=== PATIENT | male | born 1975 | race Caucasian/White ===

== ENCOUNTER 2016-06-05 18:35 | Emergency (ER) | payer BC, OTHER ==
[2016-06-05] MEDS ORDERED: SODIUM CHLORIDE 0.9% 1,000 ML ONE (19:47)
[2016-06-05 20:03] LABS: ABSOLUTE NEUTROPHIL COUNT 4.8 K/mm3 (1.8-7.7); BASO # 0.1 K/mm3 (0.0-0.2); BASO % 1.1 % (0.2-1.0); EOS # 0.4 (0.0-0.5); EOS % 3.7 % (0.9-2.9); HEMATOCRIT 49.4 % (32.0-52.0); HEMOGLOBIN 16.3 gm/l (14.0-18.0); IMM NEUT% 0.3 % (0-1); LYMPH # 3.8 (1.0-4.8); LYMPH % 37.9 % (15-45); MEAN CELL VOLUME 92.2 fl (80.0-94.0); MEAN CORPUSCULAR HEMOGLOBIN 30.4 pg (27.0-31.0); MEAN PLATELET VOLUME 9.3 fl (7.4-10.4); MONO % 9.6 % (4-12); NEUT % 47.4 % (43-75); PLATELET COUNT 291 K/mm3 (130-400); RED CELL DISTRIBUTION WIDTH 13.5 % (11.5-14.5)
--- NOTE | 2016-06-05 20:40 | RAD ---
Exam: 4 view right knee COMPARISON: None INDICATION: Left knee red and swollen, multiple sores on left lower leg. Injury 2 weeks ago. Findings: AP, lateral and bilateral AP oblique views of left knee were obtained. Imaging of the lower leg was obtained with AP and lateral projections due to the hardware. There is no significant joint effusion. A long intramedullary willie is present through the tibia. There is a single proximal interlocking screw but no distal interlocking screws. The distal end of the screw projects approximately 6 mm beyond the medial tibia. There is up to 3 mm of lucency about the proximal willie anteriorly which is of uncertain chronicity and significance given lack of comparisons. Healed fracture deformities are seen within the midshaft of the tibia as well as within the proximal third diaphysis of the fibula. Alignment within the knee and ankle is normal. IMPRESSION: No acute osseous abnormality within the left knee. Postsurgical posttraumatic changes are identified within the left tibia and fibula as above. Some lucency is noted about the proximal willie which is of uncertain significance; loosening or infection cannot be excluded. Recommend comparison with outside films if available.
[2016-06-05 20:45] LABS: ALB/GLOB RATIO 1.8 (>1.0); ALBUMIN 4.9 gm/dL (3.5-5.7); ALT/SGPT 23 U/L (7-52); BLOOD UREA NITROGEN 15 mg/dL (7-25); BUN/CREATININE RATIO 15 (6-20); C-REACTIVE PROTEIN < 0.3 mg/dl (<1.0); CALCIUM 10.3 mg/dL (8.6-10.3); GLOMERULAR FILTRATION RATE 83 mL/min (60-107)
== END 2016-06-05 21:41 | disposition home or self-care (01) ==
LOC: ED 18:35
DX: S89.92XA Unspecified injury of left lower leg, initial encounter (principal); M96.89 Other intraoperative and postprocedural complications and disorders of the musculoskeletal system; F17.210 Nicotine dependence, cigarettes, uncomplicated; W22.8XXA Striking against or struck by other objects, initial encounter
CPT/HCPCS: 86141; 85025; 87040; 80053; 85651; 73564; 99283 ×2; J7030

== ENCOUNTER 2016-07-12 09:06 | Day surgery (SDC) | payer OTHER ==
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
[~2016-07-12 09:06] MED LIST: CEFAZOLIN SODIUM 2 GRAM PREMIX 100 ML IV ONE; CEFAZOLIN SODIUM 2 GRAM PREMIX 100 ML IV PRN; IV START KIT ONE; LACTATED RINGERS 1,000 ML ONE
[2016-07-12] MEDS ORDERED: FENTANYL 100 MCG/2 ML VIAL ONE ×2 (10:29→11:30)
[2016-07-12] MEDS ORDERED: MIDAZOLAM HCL 1 MG/ML 2ML VIAL ONE (10:29)
[2016-07-12] MEDS ORDERED: PROPOFOL 20 ML IV ONE (10:29)
[2016-07-12] MEDS ORDERED: SUCCINYLCHOLINE CHL 20 MG/ML DOSE ONE (11:13)
[2016-07-12] MEDS ORDERED: HYDROMORPHONE HCL 1 MG/ML SYRINGE IV PRN ×2 (11:21→12:50)
[2016-07-12] MEDS ORDERED: MEPERIDINE 25 MG/ML SYRINGE IV PRN (11:21)
[2016-07-12] MEDS ORDERED: FENTANYL 100 MCG/2 ML VIAL IV PRN (11:21)
[2016-07-12] MEDS ORDERED: HYDRALAZINE HCL 20 MG/1 ML VIAL IV PRN (11:21)
[2016-07-12] MEDS ORDERED: ONDANSETRON 4 MG/2ML 2 ML VIAL IV PRN ×2 (11:21→12:50)
[2016-07-12] MEDS ORDERED: NALOXONE HCL 0.4 MG/ML VIAL IV PRN (11:21)
[2016-07-12] MEDS ORDERED: ATROPINE SULFATE 0.4 MG/1 ML VIAL IV PRN (11:21)
[2016-07-12] MEDS ORDERED: PROMETHAZINE HCL 25 MG/ML VIAL IM PRN (11:21)
[2016-07-12] MEDS ORDERED: LABETALOL HCL 5 MG/ML 20ML VIAL IV PRN (11:21)
[2016-07-12] MEDS ORDERED: ONDANSETRON 4 MG/2ML 2 ML VIAL ONE (11:27)
[2016-07-12] MEDS ORDERED: DEXAMETHASONE SOD PHOS 4 MG/1 ML VIAL ONE (11:27)
[2016-07-12] MEDS ORDERED: LACTATED RINGERS 1,000 ML IV SCH ×2 (11:30→12:50)
[2016-07-12] MEDS ORDERED: BUPIVACAINE 0.5% (PRES FREE) 30 ML VIAL ONE (11:45)
--- NOTE | 2016-07-12 12:14 | PCMBPN ---
Brief Post Op Note: Date of Procedure: 07/12/16 Start Time: 1100 Preoperative Diagnosis: 1. left tibia retained symptomatic hardware Postoperative Diagnosis: 1. Same Procedure: left tibia hardware removal (interlocking screw) Surgeon: Jelani Cook MD Assist: David Catherine PA-C Anesthesia: Kirk Matthews Findings: as above Condition: stable to PACU Complications: none IV Fluids: 1100 mLs of LR Urine Output: 0 mLs Estimated Blood Loss: 5 mLs Tourniquet Time: 0 Specimens: none Implants: 1 interlocking screw removed Drains: none Jelani Cook MD
[2016-07-12] MEDS ORDERED: ACETAMINOPHEN 325 MG TABLET PO PRN (12:50)
[2016-07-12] MEDS ORDERED: OXYCODONE/ACETAMINOPHEN 5/325 MG TABLET PO PRN (12:50)
[2016-07-12] MEDS ORDERED: DIPHENHYDRAMINE HCL 50 MG/1 ML VIAL IV PRN (12:50)
[2016-07-12] MEDS ORDERED: OXYCODONE/ACETAMINOPHEN 5/325 MG TABLET ONE (13:32)
--- NOTE | 2016-07-12 14:07 | RAD ---
INTRAOPERATIVE FLUOROSCOPY HISTORY: Left knee hardware removal. TECHNIQUE: 18 seconds of fluoroscopy time was provided for Dr. Cook for purposes of procedural guidance. One fluoroscopic spot image was submitted for review. FINDINGS: Intramedullary willie of the left tibia is noted. When compared to prior series from 06/05/2016, an upper locking screw has been removed. IMPRESSION: Fluoroscopy provided for procedural guidance.
--- NOTE | 2016-07-13 10:55 | OP ---
Francois [id number] : 1975 DATE OF SERVICE: July 12, 2016 PREOPERATIVE DIAGNOSIS: Left tibia retained symptomatic hardware. POSTOPERATIVE DIAGNOSIS: Left tibia retained symptomatic hardware. PROCEDURE PERFORMED: LEFT TIBIAL HARDWARE REMOVAL. SURGEON: Jelani Cook M.D. PIE BOTTOMER: David Echols P.A.-C. ANESTHESIA: Marion Matthews C.R.N.A. SPECIMENS: No material was sent to the laboratory. ESTIMATED BLOOD LOSS: 5 mL. FLUIDS REPLACED: 1100 mL of crystalloid. TOURNIQUET: No tourniquet was utilized. IMPLANTS: We removed a single interlocking screw from the proximal portion of the nail. INDICATIONS: This is a 41-year-old gentleman who previously underwent IM nailing of his left tibia for fracture. He had proximal and distal interlocks placed. He previously had his distal interlocks removed as this was causing pain. He had a remaining proximal interlock that was also causing him some discomfort and desired to have it removed. Risks, benefits and alternatives were discussed, the patient elected to proceed with surgery. Informed consent was obtained and documented in the chart and he was placed on the schedule at the first available convenience. DESCRIPTION OF PROCEDURE: The patient was identified in the pre-operative holding area where he was marked with an indelible marker by the operating surgeon. He was taken to the operating room and placed in the supine position on the operating room table. General anesthesia was induced. Perioperative antibiotics were administered. A well padded precalibrated nonsterile tourniquet was placed on his left upper thigh. He was prepped and draped in the usual sterile fashion for surgery. An operative timeout was performed and confirmed by all members of the operative team. Location of the proximal interlock screw was localized using intraoperative fluoroscopy and then a small incision was made overlying the screw. Dissection was carried down identifying the head of the screw and the screw was removed in one piece with the appropriate screwdriver. At this point the wound was copiously irrigated with sterile saline and closed in sterile fashion. He had a sterile dressing of Xeroform, fluffs, web roll and an GAY bandage applied. The drapes were removed. The patient was awakened from his anesthesia and extubated in the operating room and transferred to a stretcher and taken postoperatively to the postanesthesia care unit in stable condition. There were no observed Intraoperative complications during this procedure. Job [id number] Cc: [facility]
== END 2016-07-12 13:55 | disposition home or self-care (01) ==
LOC: SDC 09:06
PROVIDERS: ATTEND Orthopaedic Surgery
PROC: 0QPH04Z Removal of Internal Fixation Device from Left Tibia, Open Approach (ICD-10-PCS; principal; 2016-07-12)
DX: T84.197A Other mechanical complication of internal fixation device of bone of left lower leg, initial encounter (principal); F17.210 Nicotine dependence, cigarettes, uncomplicated
CPT/HCPCS: 76000; 73560; 20680; J3010 ×2; J1100; A9270; J2250; J2405; J7120; J0690

== ENCOUNTER 2016-07-20 15:16 | Emergency (ER) | payer OTHER | END 2016-07-20 16:14 | disposition home or self-care (01) | LOC: ED 15:16 | DX: M76.42 Tibial collateral bursitis [Pellegrini-Stieda], left leg (principal); M70.862 Other soft tissue disorders related to use, overuse and pressure, left lower leg; F17.210 Nicotine dependence, cigarettes, uncomplicated ==